=== PATIENT | female | born 1940 | race Caucasian/White ===

== ENCOUNTER → 2016-09-02 | Outpatient (CLI) | payer OTHER ==
[~2016-09-02] MED LIST: ADVAIRDISKUS; DOXYCYCLINE; HIGH CHOLESTEROL MED
== END ==
LOC: NUC 08-29 11:13
DX: M85.88 Other specified disorders of bone density and structure, other site (principal); E55.9 Vitamin D deficiency, unspecified; Z78.0 Asymptomatic menopausal state; Z79.01 Long term (current) use of anticoagulants